=== PATIENT | female | born 1995 | race African-American/Black ===

== ENCOUNTER 2023-10-20 10:13 | Emergency (ER) | payer MEDICAID ==
[~2023-10-20] VITALS: Ht 157.5 cm; Wt 73.0 kg
[2023-10-20 10:24] VITALS: O2SAT 99
[2023-10-20 11:04] LABS: BASOPHILS % 0.8 % (0.0-2.0); EOSINOPHILS % 2.5 % (0.0-5.0); HEMATOCRIT. 38.7 % (36.0-48.0); LYMPHOCYTES % 51.7 % (20.0-50.0); MEAN CORPUSCULAR HEMOGLOBIN 31.6 pg (28.0-32.0); MEAN CORPUSCULAR HGB CONC 33.5 g/dL (31.0-37.0); MEAN CORPUSCULAR VOLUME 94.4 fL (81.0-99.0); MEAN PLATELET VOLUME 8.3 fl (7.4-10.4); MONOCYTES % 11.4 % (2.0-8.0); NEUTROPHILS % 33.6 % (40.0-76.0); PLATELET 273 x1000/uL (130-400); RED CELL DISTRIBUTION WIDTH 14.6 % (11.6-14.6); WHITE BLOOD COUNT 5.1 x1000/uL (4.5-11.0)
[2023-10-20 11:12] LABS: CHLORIDE 109 mEq/L (98-107); POTASSIUM 3.4 mEq/L (3.5-5.1); SODIUM 141 mEq/L (136-145)
[2023-10-20 11:13] LABS: CARBON DIOXIDE 26 mEq/L (21-32)
[2023-10-20 11:14] LABS: CALCIUM 9.5 mg/dL (8.7-10.4)
[2023-10-20 11:18] LABS: CREATININE 0.9 mg/dL (0.6-1.0); GLUCOSE 94 mg/dL (70-105); UREA NITROGEN BLOOD 8 mg/dL (9-23)
[2023-10-20 11:20] LABS: ALANINE AMINOTRANSFERASE 11 IU/L (10-49); ALBUMIN 4.3 g/dL (3.2-4.8); ASPARTATE AMINOTRANSFERASE 19 IU/L (<34)
[2023-10-20 11:21] LABS: BILIRUBIN DIRECT 0.1 mg/dL (<=3.0); BILIRUBIN TOTAL 0.3 mg/dL (0.1-1.0); PROTEIN TOTAL 7.4 g/dL (6.0-8.3)
[2023-10-20 11:35] LABS: HCG SCREEN NEGATIVE
[2023-10-20 11:40] LABS: CLARITY URINE CLOUDY (CLEAR); COLOR URINE DARK YELLOW (YELLOW); GLUCOSE URINE NEGATIVE (NEGATIVE); KETONES URINE NEGATIVE (NEGATIVE); LEUKOCYTE ESTERASE URINE TRACE (NEGATIVE); NITRITE URINE NEGATIVE (NEGATIVE); OCCULT BLOOD URINE 2+ (NEGATIVE); PH URINE 6.5 (4.5-8.0); PROTEIN URINE TRACE (NEGATIVE); SPECIFIC GRAVITY URINE 1.032 (1.005-1.030)
[2023-10-20 12:43] LABS: MUCUS URINE 3+ /lpf (< = 2+); SQUAMOUS EPITHELIAL CELL URINE 2+ /lpf (RARE/1+)
[2023-10-20 12:49] LABS: RBC URINE 50-100 /hpf (0-2)
[2023-10-20 12:51] LABS: BACTERIA URINE 2+
[2023-10-20] MEDS ORDERED: IBUP-2028 MT (15:57)
[2023-10-20] MEDS ORDERED: HYDR-4001 MT (15:57)
[2023-10-20] MEDS ORDERED: TAMS-11 MT (16:00)
[2023-10-20] MEDS ORDERED: ONDA4TAB11 PO (16:00)
[2023-10-20] MEDS: KETOROLAC 60MG/2ML VIAL IM ONE (16:02)
[2023-10-20 16:45] VITALS: BP 118/72; PULSE 82; RESP 17; TEMP 97.8
== END 2023-10-20 14:37 | disposition home or self-care (01) ==
LOC: ER 10:13
DX: R10.9 Unspecified abdominal pain (principal); J45.909 Unspecified asthma, uncomplicated
CPT/HCPCS: 99283; 80076; 80048; 81003; 84703; 85025; 36415; 96372; J1885